=== PATIENT | male | born 1990 | race African-American/Black ===

== ENCOUNTER 2021-06-19 14:56 | Emergency (ER) | payer MEDICAID ==
[~2021-06-19] VITALS: Ht 180.3 cm; Wt 96.6 kg
[2021-06-19 15:03] VITALS: BP 131/84
[2021-06-19] MEDS ORDERED: KETOROLAC 30 MG/ML VIAL IM ONE (15:25)
[2021-06-19] MEDS ORDERED: IBUP-2213 PO (15:56)
[2021-06-19] MEDS ORDERED: METH4TAB3 PO (15:56)
[2021-06-19] MEDS ORDERED: CYCL-711 PO (15:56)
[2021-06-19] MEDS ORDERED: LID5T TP (15:56)
[2021-06-19 16:19] VITALS: BP 124/80
--- NOTE | 2021-06-19 16:20 | NUR ---
Patient discharged with v/s stable. Written and verbal after care instructions given FOR HIP STRAIN AND PAIN and explained. Patient alert, oriented and verbalized understanding of instructions. Ambulatory with steady gait. All questions addressed prior to discharge. ID band removed. Patient advised to follow up with PMD. Rx of FLEXERIL, IBUPROFEN, LIDOCAINE, AND MEDROL given. Patient educated on indication of medication including possible reaction and side effects. Opportunity to ask questions provided and answered.
== END 2021-06-19 16:20 | disposition home or self-care (01) ==
LOC: MED 14:56
DX: S76.012A Strain of muscle, fascia and tendon of left hip, initial encounter (principal); M54.50 Low back pain, unspecified; R03.0 Elevated blood-pressure reading, without diagnosis of hypertension; F12.90 Cannabis use, unspecified, uncomplicated; Z79.899 Other long term (current) drug therapy; X58.XXXA Exposure to other specified factors, initial encounter; Y93.89 Activity, other specified; Y92.89 Other specified places as the place of occurrence of the external cause; Y99.8 Other external cause status
CPT/HCPCS: 73502; 96372; 99283; J1885; 90471